=== PATIENT | female | born 1990 | race Caucasian/White ===

== ENCOUNTER 2018-09-30 10:25 | Inpatient (IN) ==
[2018-09-30] MEDS ORDERED: LACTATED RINGER'S 1,000 ML IV PRN ×3 (11:38→23:54)
[2018-09-30] MEDS ORDERED: OXYTOCIN 30 UNITS/500 ML BAG IV PRN ×2 (11:38→18:13)
[2018-09-30 12:11] LABS: Hematocrit (blood only) 34.1 % (37-47); Hemoglobin 11.6 g/dL (12.0-16.0); Mean Corpuscular Volume 81.6 fL (80-100); Platelet Count 263 K/uL (130-400); RDW Coefficient of Variation 14.1 % (11.5-14.5); RDW Standard Deviation 41.9 fL (36.4-46.3); Red Blood Count 4.18 M/uL (4.2-5.4); White Blood Count 10.09 K/uL (4.8-10.8)
--- NOTE | 2018-09-30 13:01 | Obstetrical Progress Note ---
Date of Service September 30, 2018 Subjective Admit Note 28 F P0000 at 40.6 weeks admitted for IOL for post-dates. GBS is negative. FHT Cat 1. Cervix 1-2/50/-3/vertex/soft/posterior/intact. Some irregular contractions on monitor that are mild to patient. Will give Cytotec 25 mcg vaginally. Physical Exam Vital Signs (Past 24 Hours): Last Vital Signs Temp 37.3 C 09/30/18 11:25 Pulse 108 H 09/30/18 10:50 Resp 20 09/30/18 11:25 BP 138/99 09/30/18 10:50
[2018-09-30] MEDS: miSOPROStol 25 MCG TAB PV SCH ×3 (13:24→22:00)
--- NOTE | 2018-09-30 13:33 | Obstetrical Progress Note ---
Date of Service September 30, 2018 Physical Exam Vital Signs (Past 24 Hours): Last Vital Signs Temp 37.3 C 09/30/18 11:25 Pulse 87 09/30/18 13:26 Resp 20 09/30/18 11:25 BP 132/87 09/30/18 13:26 Physical Exam: Cytotec 25 mcg placed vaginally. T Cat 1.
--- NOTE | 2018-09-30 18:16 | Obstetrical Progress Note ---
Date of Service September 30, 2018 Physical Exam Vital Signs (Past 24 Hours): Last Vital Signs Temp 36.5 C 09/30/18 14:55 Pulse 100 H 09/30/18 14:55 Resp 18 09/30/18 14:55 BP 119/66 09/30/18 14:55 Genitourinary: OB Exam Abdomen: + heart tones, + estimated weight (7.5 lbs.) and + irregular contractions Manual OB Exam: + cervical dilation 4 cm, + cervical effacement 60% and + station high OB Exam Monitor Tracing: + external FHT monitor used, + external uterine monitor used and + category I will start oxytocin to augment contractions
[2018-09-30] MEDS: LACTATED RINGER'S 1,000 ML IV SCH ×2 (18:57→21:00)
[2018-09-30] MEDS ORDERED: BUPIVACAINE 0.25% 30 ML VIAL ONE (20:08)
[2018-09-30] MEDS ORDERED: fentaNYL 2MCG/ML ROPIV 1.25MG/ML 100 ML BAG EPI ONE (20:09)
[2018-09-30] MEDS ORDERED: fentaNYL citrate 100 MCG/2 ML VIAL ONE (20:09)
[2018-09-30] MEDS ORDERED: ePHEDrine sulfate 50 MG/ML AMP ONE (20:09)
--- NOTE | 2018-09-30 22:33 | Obstetrical Progress Note ---
Date of Service September 30, 2018 Physical Exam Vital Signs (Past 24 Hours): Last Vital Signs Temp 37.2 C 09/30/18 18:53 Pulse 115 H 09/30/18 22:28 Resp 18 09/30/18 21:42 BP 136/73 09/30/18 22:28 Pulse Ox 98 09/30/18 22:26 Genitourinary: Manual OB Exam: + cervical dilation 9 cm, + cervical effacement 100%, + station -2 and + amniotic fluid meconium OB Exam Monitor Tracing: + external FHT monitor used, + category II and + variable decelerations AROM with meconium fluid
--- NOTE | 2018-09-30 23:48 | Anesthesiology Consultation ---
Date of Service September 30, 2018 Assessment & Plan (1) Encounter for pre-operative examination: Chart Review Chart Review: Acceptable Risk for Surgery and Patient NOT seen in Pre Admission Testing Consults Requested none ASA ASA2 Proposed Anesthesia Anesthesia Type: Labor Epidural History Height/Weight Height: 5 ft 2 in Weight: 81.193 kg Allergies Allergy/AdvReac Type Severity Reaction Status Date / Time No Known Allergies Allergy Verified 09/30/18 11:54 Medications Home Medications Medication Instructions Recorded Confirmed Last Taken docusate sodium [Colace] 100 mg PO DAILY 09/30/18 09/30/18 09/29/18 08:00 ferrous sulfate [iron] 325 mg PO DAILY 09/30/18 09/30/18 09/29/18 08:00 vit-iron fum-folic ac 1 tab PO DAILY 09/30/18 09/30/18 09/29/18 08:00 [ Vitamin] Active Medications Generic Name Dose Route Start Last Admin Trade Name Freq PRN Reason Stop Dose Admin Lactated Ringer's 1,000 mls @ 125 mls/hr 09/30/18 11:45 09/30/18 22:20 Lr IV 10/02/18 11:44 125 mls/hr .Q8H LUISANA Infusion Oxytocin 30 units in 500 mls @ 0 mls/hr 09/30/18 18:13 09/30/18 22:10 Pitocin IV 10/02/18 18:12 0 units/hr .Q0M PRN 0 mls/hr Labor Induction/Augmentation Titration Protocol 0 UNITS/HR Misoprostol 25 mcg 09/30/18 13:15 09/30/18 22:00 Cytotec PV 10/30/18 13:14 Not Given Q4H LUISANA Social History Smoking Status: Never smoker Hx Alcohol Use: No Hx Substance Use: No substance use type: does not use Physical Exam Vital Signs Last Vital Signs Temp 37.6 C H 09/30/18 23:04 Pulse 108 H 09/30/18 23:43 Resp 20 09/30/18 23:04 BP 141/85 H 09/30/18 23:43 Pulse Ox 100 09/30/18 23:41 Testing Laboratory Results 09/30/18 11:59
[2018-09-30] MEDS ORDERED: DiphenhydrAMINE HCL 50 MG/ML VIAL IV PRN (23:54)
[2018-09-30] MEDS ORDERED: fentaNYL 2MCG/ML ROPIV 1.25MG/ML 100 ML BAG EPI PRN (23:54)
[2018-09-30] MEDS ORDERED: ePHEDrine sulfate 50 MG/ML AMP IV PRN (23:54)
[2018-09-30] MEDS ORDERED: NALOXONE HCL 1 MG in SODIUM CHLORIDE 0.9% 1000ML 1,000 ML IV PRN (23:54)
[2018-09-30] MEDS ORDERED: ONDANSETRON INJ 2 MG/ML 2 ML VIAL IV PRN (23:54)
[2018-09-30] MEDS ORDERED: NALBUPHINE HCL INJ 10 MG/ML AMP IV PRN (23:54)
[2018-09-30] MEDS ORDERED: NALOXONE HCL 0.4 MG/1 ML VIAL/CARP IV PRN (23:54)
[2018-10-01] MEDS: LACTATED RINGER'S 1,000 ML IV SCH (00:11)
[2018-10-01] MEDS ORDERED: BISACODYL 10 MG SUPP PR PRN (02:37)
[2018-10-01] MEDS ORDERED: DIPHTHERIA/TETANUS/PERTUSSIS 0.5 ML SYR/VIAL IM ONE (02:37)
[2018-10-01] MEDS ORDERED: SUPERCREAM 0.870% 15 GM JAR EXT PRN (02:37)
[2018-10-01] MEDS ORDERED: OXYTOCIN 30 UNITS/500 ML BAG IV PRN (02:37)
[2018-10-01] MEDS ORDERED: ACETAMINOPHEN 325 MG TAB PO PRN (02:37)
[2018-10-01] MEDS ORDERED: HYDROCORTISONE ACETATE 25 MG SUPP PR PRN (02:37)
[2018-10-01] MEDS ORDERED: BENZOCAINE 20% AER SPR 82.5 GM CAN EXT PRN (02:37)
--- NOTE | 2018-10-01 02:49 | Procedure Note ---
Vaginal Delivery Summary Date of Service October 01, 2018 Supervising Physician Co-Signing Physician Notes Delivery Note live female over intact perineum TAYLOR with nuchal cord x1 reduced at time of delivery. Baby born with meconium and brought over to nurse for warming and suctioning. Apgars 8/9 weight pending. Cord blood obtained and cord for blood gasses obtained. Placenta delivered spontaneously and intact. No tears. EBL 200 ml. Final sponge and instrument count are correct. Mom and baby stable.
[2018-10-01 03:02] LABS: Base Excess Cord Arterial Bld -9.2 mEq/L (-9-1.8); CO2 Cord Arterial Blood 54 mmHg (39.1-73.5); HCO3 Cord Arterial Blood 20 mmol/L (19.7-28.5); pH Cord Arterial Blood 7.18 (7.1-7.38)
[2018-10-01 03:08] LABS: Base Excess Cord Venous Blood -8.3 mEq/L (-7.7-1.9); Cord Venous Blood HCO3 20 mmol/L (18.4-26.8); Cord Venous Blood PCO2 49 mmHg (30.4-57.2); Cord Venous Blood PO2 22 mmHg (14.1-43.3); Cord Venous Blood pH 7.22 (7.20-7.44)
[2018-10-01 03:09] LABS: O2 Saturation Cord Venous Bld < 68.0 % (<68)
--- NOTE | 2018-10-01 03:29 | Anesthesia Procedure Note ---
Date of Service October 01, 2018 Anesthesia Post Epidural Note Vital Signs Vital Signs: Temp Pulse Resp BP Pulse Ox 37.0 C 112 H 20 117/61 97 10/01/18 02:42 10/01/18 03:12 10/01/18 03:12 10/01/18 03:12 10/01/18 02:42 Pain Intensity Bilateral Abdomen: Pain Intensity: 0 Notes Mental Status: alert / awake / arousable Patient Amnestic to Procedure: Yes Nausea / Vomiting: adequately controlled Pain: adequately controlled Airway Patency, RR, SpO2: stable & adequate BP & HR: stable & adequate Hydration State: stable & adequate Neuraxial Anesthesia: sensory block is resolving Anesthetic Complications: no major complications apparent and Pt Satisfied with anesthetic care Epidural: Removed without complications and With tip intact
[2018-10-01] MEDS: IBUPROFEN 600 MG TAB PO PRN ×4 (06:37→19:54)
[2018-10-01] MEDS: DOCUSATE SODIUM 100 MG CAP PO SCH ×2 (08:17→19:54)
[2018-10-01] MEDS: PRENATAL VITAMIN 1 TAB PO SCH (08:17)
[2018-10-01] MEDS: FERROUS SULFATE 325 MG TAB PO SCH (08:17)
[2018-10-01] MEDS ORDERED: DOCUSATE SODIUM 100 MG CAP PO SCH (09:00)
[2018-10-01] MEDS ORDERED: NON-FORMULARY MEDICATION (Prenatal Vit-Iron Fum-Folic Ac [Prenatal Vitamin] 1 TAB) PO SCH (09:00)
[2018-10-01] MEDS ORDERED: NON-FORMULARY MEDICATION (Ferrous Sulfate [Iron] 325 MG) PO SCH (09:00)
[2018-10-02] MEDS: IBUPROFEN 600 MG TAB PO PRN ×3 (00:55→15:23)
[2018-10-02 07:43] LABS: Hemoglobin 9.2 g/dL (12.0-16.0); Mean Corpuscular Hgb Conc 32.9 g/dL (32-36); Mean Corpuscular Volume 81.6 fL (80-100); Mean Platelet Volume 9.4 fL (7.4-10.4); Platelet Count 213 K/uL (130-400); RDW Coefficient of Variation 14.6 % (11.5-14.5); RDW Standard Deviation 43.2 fL (36.4-46.3); Red Blood Count 3.43 M/uL (4.2-5.4); White Blood Count 9.93 K/uL (4.8-10.8)
[2018-10-02] MEDS: DOCUSATE SODIUM 100 MG CAP PO SCH ×2 (09:11→20:20)
[2018-10-02] MEDS: FERROUS SULFATE 325 MG TAB PO SCH (09:11)
[2018-10-02] MEDS: PRENATAL VITAMIN 1 TAB PO SCH (09:11)
--- NOTE | 2018-10-02 10:29 | Obstetrical Progress Note ---
Date of Service October 02, 2018 Subjective Patient is seen and examined. She feels well, no complaints. Ambulating without dizziness Voiding without difficulty Tolerating regular diet with out N&V Bleeding is minimal No fever/ chills/ CP/ SOB/ N&V/ Leg pain Breast feeding without problems Vital Signs Temp Pulse Resp BP Pulse Ox 10/02/18 00:40 36.5 C 84 16 111/70 10/01/18 19:55 36.5 C 95 H 18 103/68 99 10/01/18 16:30 36.7 C 92 H 18 120/77 98 10/01/18 11:15 36.7 C 95 H 16 116/77 98 10/02/18 Range/Units 07:20 WBC 9.93 (4.8-10.8) K/uL RBC 3.43 L (4.2-5.4) M/uL Hgb 9.2 L (12.0-16.0) g/dL Hct 28.0 L (37-47) % MCV 81.6 (80-100) fL MCH 26.8 (25-34) pg MCHC 32.9 (32-36) g/dL RDW Std Deviation 43.2 (36.4-46.3) fL RDW Coeff of Yarely 14.6 H (11.5-14.5) % Plt Count 213 (130-400) K/uL MPV 9.4 (7.4-10.4) fL PE: General: Alert, orientedx3, NAD Abd: soft, NT, fundus firm, below Umbilicus Perineum intact, Lochia rubra minimal Ext; NT, no edema AP: 28 yo s/p , ppd# 1 VSS Afebrile doing well Continue routine care All questions were answered D/C home tomorrow Physical Exam Vital Signs (Past 24 Hours): Last Vital Signs Temp 36.5 C 10/02/18 00:40 Pulse 84 10/02/18 00:40 Resp 16 10/02/18 00:40 BP 111/70 10/02/18 00:40 Pulse Ox 99 10/01/18 19:55
[2018-10-02 13:24] VITALS: O2SAT 98
[2018-10-02] MEDS: BISACODYL 5 MG TABEC PO SCH ×2 (20:20→20:22)
[2018-10-03] MEDS: IBUPROFEN 600 MG TAB PO PRN (02:20)
[2018-10-03 07:14] LABS: Hematocrit (blood only) 28.5 % (37-47); Hemoglobin 9.3 g/dL (12.0-16.0)
[2018-10-03] MEDS: DOCUSATE SODIUM 100 MG CAP PO SCH (08:11)
[2018-10-03] MEDS: PRENATAL VITAMIN 1 TAB PO SCH (08:11)
[2018-10-03] MEDS: FERROUS SULFATE 325 MG TAB PO SCH (08:11)
[2018-10-03 09:28] VITALS: BP 125/79; PULSE 98; TEMP 97.9
--- NOTE | 2018-10-03 10:07 | Obstetrical Progress Note ---
Date of Service October 03, 2018 Subjective doing well passing gas +BM Physical Exam Vital Signs (Past 24 Hours): Last Vital Signs Temp 36.6 C 10/03/18 08:08 Pulse 98 H 10/03/18 08:08 Resp 18 10/03/18 08:08 BP 125/79 10/03/18 08:08 Pulse Ox 98 10/03/18 08:08 Constitutional: WD/WN, vitals as above comfortable Abdomen soft non-tender fundus firm Neg edema neg [facility] for discharge
== END 2018-10-03 15:47 | disposition home or self-care (01) | DRG 807 ==
LOC: 4S1 10:25 → 4S2 10-01 05:19

== ENCOUNTER 2022-04-28 19:30 | Inpatient (IN) ==
[2022-04-28] MEDS ORDERED: LIDOCAINE 1% LOCAL 20 ML VIAL INFIL PRN (20:09)
[2022-04-28] MEDS ORDERED: OXYTOCIN 30 UNITS/500 ML BAG IV PRN ×2 (20:09→23:53)
[2022-04-28] MEDS ORDERED: LACTATED RINGER'S 1,000 ML IV PRN (20:09)
[2022-04-28 20:36] LABS: Hemoglobin 12.3 g/dl (12.0-16.0); Mean Corpuscular Hemoglobin 27.6 pg (25.0-34.0); Mean Corpuscular Hgb Conc 34.2 g/dL (32.0-36.0); Mean Corpuscular Volume 80.7 fL (80.0-100.0); Mean Platelet Volume 9.1 fL (9.4-12.3); Platelet Count 273 K/uL (130-400); RDW Coefficient of Variation 14.6 % (11.5-14.5); RDW Standard Deviation 42.4 fL (36.4-46.3); Red Blood Count 4.46 M/uL (3.93-5.22); White Blood Count 12.58 K/ul (4.8-10.8)
--- NOTE | 2022-04-28 20:42 | History & Physical Report ---
Date of Service April 28, 2022 Assessment & Plan (1) : Plan Admit Anticipate normal delivery Admission and Anticipated Discharge Date Admission Date: April 28, 2022 History of Present Illness Chief Complaint: onset of labor Primary Care Provider: Ly Brizuela MD 31 F P1001 at 40 weeks presents in active labor. GBS is negative. Covid home test was positive and pending PCR. Allergies Allergy/AdvReac Type Severity Reaction Status Date / Time No Known Allergies Allergy Verified 09/30/18 11:54 Home Medications Medication Instructions Recorded Confirmed Type docusate sodium 100 mg capsule 100 mg PO DAILY 09/30/18 09/30/18 History (Colace) ferrous sulfate 325 mg (65 mg 325 mg PO DAILY 09/30/18 09/30/18 History iron) tablet (iron) vitamins-iron fumarate 27 1 tab PO DAILY 09/30/18 09/30/18 History mg iron-folic acid 0.8 mg tablet ( Vitamin) ibuprofen 600 mg tablet 600 mg PO Q6H PRN pain #30 tabs 10/03/18 Rx epinephrine 0.3 mg/0.3 mL 0.3 mg (0.3 mL) IM ONCE PRN 07/25/21 Rx injection, auto-injector (EpiPen allergic reaction #1 ea 2-[place]) Patient History Medical History No chronic diseases present Surgical History No significant past surgical history Social History Smoking Status: Never smoker Hx Alcohol Use: No Hx Substance Use: No Preferred Language: Salvadorean Beliefs That Will Affect Care: None marital status: marital status details: Teddy Current Living Situation: Spouse current occupational status: employed current occupation: [employer] Other Information That Helps Us Care for You: No Feels Safe at Home: Yes Safety Concerns: Feels Safe At This Time Childhood Exposure to Second-Hand Smoke: No Gender Identity: Female Assistive Devices: None OB History x1 Review of Systems All systems reviewed & are unremarkable except as noted in HPI & below Physical Exam Constitutional: WD/WN, vitals as above Eyes: PERRL, conjunctivae normal, anicteric sclerae Neck: trachea midline, no thyromegaly Respiratory: normal respiratory effort, lungs clear to auscultation Cardiovascular: RRR, no murmur, no edema Musculoskeletal: Extremities: extremities normal to inspection Skin: no rashes, warm and dry Neurologic: patellar DTR's 2+ bilat, sensation intact Psychiatric: A+Ox3, euthymic affect Genitourinary: normal external appearance OB Exam Abdomen: + fundal height, + heart tones and + vertex Manual OB Exam: + cervical dilation OB Exam Monitor Tracing: + external FHT monitor used, + external uterine monitor used, + category I and + normal FHT variability Results & Data ([place]) Vital Signs (Past 12 Hours) Vital Signs Pulse BP 04/28/22 19:45 108 H 133/84 Monitoring External Monitor Cat 1
[2022-04-28] MEDS ORDERED: ePHEDrine sulfate 50 MG/ML AMP ONE (20:49)
[2022-04-28] MEDS ORDERED: fentaNYL citrate 100 MCG/2 ML VIAL ONE (20:49)
[2022-04-28] MEDS ORDERED: BUPIVACAINE 0.25% 30 ML VIAL ONE (20:49)
[2022-04-28] MEDS ORDERED: SODIUM CHLORIDE 0.9% INJ 10 ML VIAL ONE (20:49)
[2022-04-28] MEDS ORDERED: fentaNYL 2MCG/ML ROPIVACAINE 1.25MG/ML 100 ML BAG EPI ONE (20:50)
[2022-04-28] MEDS ORDERED: LIDOCAINE 2%/EPINEPHRINE 1:200,000 20 ML SDV ONE (20:50)
--- NOTE | 2022-04-28 20:53 | Anesthesiology Consultation ---
Date of Service April 28, 2022 Assessment & Plan Chart Review Chart Review: Acceptable Risk for Labor Epidural Consults Requested none History Height/Weight Height: 5 ft 2 in Weight: 89.811 kg Allergies Allergy/AdvReac Type Severity Reaction Status Date / Time No Known Allergies Allergy Verified 09/30/18 11:54 Medications Home Medications Medication Instructions Recorded Confirmed Last Taken docusate sodium 100 mg capsule 100 mg PO DAILY 09/30/18 09/30/18 09/29/18 08:00 (Colace) ferrous sulfate 325 mg (65 mg 325 mg PO DAILY 09/30/18 09/30/18 09/29/18 08:00 iron) tablet (iron) vitamins-iron fumarate 27 1 tab PO DAILY 09/30/18 09/30/18 09/29/18 08:00 mg iron-folic acid 0.8 mg tablet ( Vitamin) ibuprofen 600 mg tablet 600 mg PO Q6H PRN pain #30 tabs 10/03/18 Unknown epinephrine 0.3 mg/0.3 mL 0.3 mg (0.3 mL) IM ONCE PRN 07/25/21 Unknown injection, auto-injector (EpiPen allergic reaction #1 ea 2-[place]) Past Medical History Medical History No chronic diseases present Past Surgical History Surgical History No significant past surgical history Social History Smoking Status: Never smoker Hx Alcohol Use: No Hx Substance Use: No substance use type: does not use Physical Exam Vital Signs Last Vital Signs Pulse 108 H 04/28/22 19:45 BP 133/84 04/28/22 19:45 Testing Laboratory Results 04/28/22 20:28
[2022-04-28] MEDS ORDERED: NALOXONE HCL 0.4 MG/1 ML VIAL/CARP IV PRN (20:54)
[2022-04-28] MEDS ORDERED: fentaNYL 2MCG/ML ROPIVACAINE 1.25MG/ML 100 ML BAG EPI PRN (20:54)
[2022-04-28] MEDS ORDERED: diphenhydrAMINE 50 MG/ML VIAL IV PRN (20:54)
[2022-04-28] MEDS ORDERED: ePHEDrine sulfate 50 MG/ML AMP IV PRN (20:54)
[2022-04-28] MEDS ORDERED: NALBUPHINE HCL INJ 10 MG/ML AMP IV PRN (20:54)
[2022-04-28] MEDS ORDERED: NALOXONE HCL 1 MG in SODIUM CHLORIDE 0.9% 1000ML 1,000 ML IV PRN (20:54)
[2022-04-28] MEDS ORDERED: bisacodyL 10 MG SUPP PR PRN (23:53)
[2022-04-28] MEDS ORDERED: EPINEPHrine ADULT AUTO-INJECT 0.3 MG SYR IM PRN (23:53)
[2022-04-28] MEDS ORDERED: BENZOCAINE 20% AER SPR 82.5 GM CAN EXT PRN (23:53)
[2022-04-28] MEDS ORDERED: DIPHTHERIA/TETANUS/PERTUSSIS 0.5 ML SYR/VIAL IM ONE (23:53)
[2022-04-28] MEDS ORDERED: ACETAMINOPHEN 325 MG TAB PO PRN (23:53)
[2022-04-28] MEDS ORDERED: HYDROCORTISONE ACETATE 25 MG SUPP PR PRN (23:53)
--- NOTE | 2022-04-28 23:56 | Delivery Summary ---
Vaginal Delivery Summary Date of Service April 28, 2022 Vaginal Delivery Summary Delivery Note live male TAYLOR over intact perineum with delayed cord clamping and Apgars 8/0 weight pending. Cord blood obtained followed by spontaneous delivery of intact placenta. No tears. Final sponge and instrument count are correct. EBL 100 ml. Mom and baby stable.
[2022-04-29] MEDS: IBUPROFEN 600 MG TAB PO PRN ×5 (04:17→20:16)
[2022-04-29 06:50] LABS: Hematocrit (blood only) 31.7 % (34.1-44.9); Hemoglobin 10.9 g/dl (12.0-16.0); Mean Corpuscular Hemoglobin 27.8 pg (25.0-34.0); Mean Corpuscular Hgb Conc 34.4 g/dL (32.0-36.0); Mean Corpuscular Volume 80.9 fL (80.0-100.0); Mean Platelet Volume 9.2 fL (9.4-12.3); Platelet Count 245 K/uL (130-400); RDW Coefficient of Variation 14.9 % (11.5-14.5); RDW Standard Deviation 43.6 fL (36.4-46.3); Red Blood Count 3.92 M/uL (3.93-5.22); White Blood Count 12.22 K/ul (4.8-10.8)
[2022-04-29] MEDS: DOCUSATE SODIUM 100 MG CAP PO SCH ×2 (08:18→20:16)
[2022-04-29] MEDS: PRENATAL VITAMIN 1 TAB PO SCH (08:18)
--- NOTE | 2022-04-29 08:43 | Obstetrical Progress Note ---
Date of Service April 29, 2022 Assessment & Plan Admission and Anticipated Discharge Date Admission Date: April 28, 2022 Subjective Patient is seen and examined. She feels well, no complaints. Ambulating without dizziness Voiding without difficulty Tolerating regular diet with out N&V Bleeding is minimal No fever/ chills/ CP/ SOB/ N&V/ Leg pain Breast feeding without problems Vital Signs Height Weight Body Mass Index Blood Pressure Blood Pressure Position Temperature Temperature Source 5 ft 2 in 89.811 kg 36.2 99/61 L Semi-fowlers 36.4 C L Oral 04/28/22 20:54 04/28/22 20:54 04/28/22 20:37 04/29/22 07:51 04/29/22 07:51 04/29/22 07:51 04/29/22 07:51 Pulse Rate Respiratory Rate Pulse Oximetry 101 H 16 98 04/29/22 07:51 04/29/22 07:51 04/28/22 23:37 Lab Results 04/28/22 04/28/22 04/28/22 Range/Units 20:12 20:28 20:28 WBC 12.58 H (4.8-10.8) K/ul RBC 4.46 (3.93-5.22) M/uL Hgb 12.3 (12.0-16.0) g/dl Hct 36.0 (34.1-44.9) % MCV 80.7 (80.0-100.0) fL MCH 27.6 (25.0-34.0) pg MCHC 34.2 (32.0-36.0) g/dL RDW Std Deviation 42.4 (36.4-46.3) fL RDW Coeff of Yarely 14.6 H (11.5-14.5) % Plt Count 273 (130-400) K/uL MPV 9.1 L (9.4-12.3) fL SARS-CoV-2, RNA, NAAT NEGATIVE (NEGATIVE) Blood Type AB Positive Antibody Screen NEGATIVE 04/29/22 Range/Units 06:26 WBC 12.22 H (4.8-10.8) K/ul RBC 3.92 L (3.93-5.22) M/uL Hgb 10.9 L (12.0-16.0) g/dl Hct 31.7 L (34.1-44.9) % MCV 80.9 (80.0-100.0) fL MCH 27.8 (25.0-34.0) pg MCHC 34.4 (32.0-36.0) g/dL RDW Std Deviation 43.6 (36.4-46.3) fL RDW Coeff of Yarely 14.9 H (11.5-14.5) % Plt Count 245 (130-400) K/uL MPV 9.2 L (9.4-12.3) fL SARS-CoV-2, RNA, NAAT (NEGATIVE) Blood Type Antibody Screen PE: General: Alert, orientedx3, NAD Abd: soft, NT, fundus firm, below Umbilicus Perineum intact, Lochia rubra minimal Ext; NT, no edema AP: 31 yo s/p , ppd# 1 VSS Afebrile doing well Continue routine care All questions were answered D/C home tomorrow Results & Data ([facility]) Vital Signs (Past 12 Hours) Vital Signs Temp Pulse Pulse Resp BP BP Pulse Ox 04/29/22 07:51 36.4 C L 101 H 16 99/61 L 04/29/22 05:52 36.8 C 103 H 18 95/49 L 04/29/22 02:00 37.1 C 105 H 18 104/58 L 04/29/22 02:00 37.1 C 18 04/29/22 01:20 18 04/29/22 00:50 18 04/29/22 00:35 18 04/29/22 00:20 18 04/29/22 00:05 18 04/28/22 23:50 37.1 C 18 04/29/22 01:50 105 H 104/58 L 04/29/22 01:35 101 H 114/60 04/29/22 01:20 93 H 116/61 04/29/22 01:05 99 H 105/55 L 04/29/22 00:50 95 H 108/59 L 04/29/22 00:35 100 H 120/63 04/29/22 00:20 98 H 130/67 04/29/22 00:06 108 H 123/60 04/28/22 23:50 107 H 177/84 H 04/28/22 23:37 118 H 98 10/18/22 23:32 110 H 98 1822 23:27 102 H 98 18/22 23:22 115 H 99 1822 23:21 98 H 167/90 H 22 23:17 106 H 98 1822 23:12 96 H 96 22 23:07 93 H 148/88 H 97 22 23:00 18 22 23:00 36.8 C 18 22 23:02 92 H 98 22 22:57 106 H 97 22 22:52 96 22 22:52 100 H 22 22:52 96 H 124/58 L 22 22:47 96 H 96 22 22:42 102 H 96 22 22:30 18 22 22:30 18 22 22:37 102 H 96 22 22:35 96 H 110/55 L 04/28/22 22:32 103 H 95 22 22:27 97 H 96 22 22:22 110 H 96 04/28/22 22:21 103 H 118/59 L 22 22:17 99 H 96 22 22:12 97 H 96 22 22:00 18 22 22:00 18 04/28/22 22:07 94 H 98 22 22:06 98 H 113/59 L 04/28/22 22:02 92 H 98 22 21:57 106 H 97 22 21:52 102 H 97 1822 21:50 107 H 147/78 H 18/22 21:47 102 H 98 18/22 21:42 106 H 98 18/22 21:30 18 1822 21:30 18 1822 21:37 105 H 98 18/22 21:35 100 H 143/77 H 18/22 21:33 103 H 139/73 1018/22 21:32 105 H 98 18/22 21:31 105 H 141/76 H 18/22 21:29 100 H 142/75 H 10/18/22 21:27 98 04/28/22 21:27 101 H 04/28/22 21:05 20 04/28/22 21:05 20 04/28/22 21:27 99 H 141/76 H 04/28/22 21:25 106 H 138/79 04/28/22 21:22 109 H 98 04/28/22 21:23 110 H 145/90 H 04/28/22 21:21 108 H 161/99 H 04/28/22 21:19 111 H 151/70 H 04/28/22 21:17 114 H 98 04/28/22 21:15 123 H 172/100 H 04/28/22 21:13 109 H 133/73 04/28/22 21:12 108 H 98 04/28/22 21:11 108 H 132/71 04/28/22 21:09 101 H 131/79 04/28/22 21:07 96 04/28/22 21:07 103 H 04/28/22 21:07 100 H 162/74 H 04/28/22 21:06 98 H 173/100 H 04/28/22 21:02 94 H 97 04/28/22 20:57 101 H 98 O2 Del Method 04/29/22 07:51 Room Air 04/29/22 05:52 Room Air 04/29/22 02:00 Room Air 04/29/22 02:00 04/29/22 01:20 04/29/22 00:50 04/29/22 00:35 04/29/22 00:20 04/29/22 00:05 04/28/22 23:50 04/29/22 01:50 04/29/22 01:35 04/29/22 01:20 04/29/22 01:05 04/29/22 00:50 04/29/22 00:35 04/29/22 00:20 04/29/22 00:06 04/28/22 23:50 04/28/22 23:37 04/28/22 23:32 04/28/22 23:27 04/28/22 23:22 04/28/22 23:21 04/28/22 23:17 04/28/22 23:12 04/28/22 23:07 04/28/22 23:00 04/28/22 23:00 04/28/22 23:02 04/28/22 22:57 04/28/22 22:52 04/28/22 22:52 04/28/22 22:52 04/28/22 22:47 04/28/22 22:42 04/28/22 22:30 04/28/22 22:30 04/28/22 22:37 04/28/22 22:35 04/28/22 22:32 04/28/22 22:27 04/28/22 22:22 04/28/22 22:21 04/28/22 22:17 04/28/22 22:12 04/28/22 22:00 04/28/22 22:00 04/28/22 22:07 04/28/22 22:06 04/28/22 22:02 04/28/22 21:57 04/28/22 21:52 04/28/22 21:50 04/28/22 21:47 04/28/22 21:42 04/28/22 21:30 04/28/22 21:30 04/28/22 21:37 04/28/22 21:35 04/28/22 21:33 04/28/22 21:32 04/28/22 21:31 04/28/22 21:29 04/28/22 21:27 04/28/22 21:27 04/28/22 21:05 04/28/22 21:05 04/28/22 21:27 04/28/22 21:25 04/28/22 21:22 04/28/22 21:23 04/28/22 21:21 04/28/22 21:19 04/28/22 21:17 04/28/22 21:15 04/28/22 21:13 04/28/22 21:12 04/28/22 21:11 04/28/22 21:09 04/28/22 21:07 04/28/22 21:07 04/28/22 21:07 04/28/22 21:06 04/28/22 21:02 04/28/22 20:57
[2022-04-29] MEDS ORDERED: NON-FORMULARY MEDICATION (Prenatal Vit-Iron Fum-Folic Ac [Prenatal Vitamin] 27 mg iron- 0. PO SCH (09:00)
[2022-04-29] MEDS ORDERED: DOCUSATE SODIUM 100 MG CAP PO SCH (09:00)
[2022-04-29] MEDS: CYANOCOBALAMIN (B-12) 500 MCG TABLET PO SCH (09:09)
[2022-04-29] MEDS: FERROUS SULFATE 325 MG TAB PO SCH (09:09)
--- NOTE | 2022-04-29 09:24 | Anesthesia Procedure Note ---
Date of Service April 29, 2022 Anesthesia Post Epidural Note Vital Signs Vital Signs: Temp Pulse Resp BP Pulse Ox O2 Del Method 36.4 C L 101 H 16 99/61 L 98 04/29/22 07:51 04/29/22 07:51 04/29/22 07:51 04/29/22 07:51 04/28/22 23:37 04/29/22 07:51 Notes Mental Status: alert / awake / arousable and participated in evaluation Nausea / Vomiting: adequately controlled Pain: adequately controlled Airway Patency, RR, SpO2: stable & adequate BP & HR: stable & adequate Hydration State: stable & adequate Neuraxial Anesthesia: was administered and sensory block is resolving Anesthetic Complications: no major complications apparent and Pt Satisfied with anesthetic care Epidural: Removed without complications and With tip intact
[2022-04-29] MEDS ORDERED: bisacodyL 5 MG TABEC PO SCH (20:00)
[2022-04-30] MEDS: IBUPROFEN 600 MG TAB PO PRN ×3 (03:34→12:51)
[2022-04-30 07:42] LABS: Hemoglobin 10.4 g/dl (12.0-16.0)
[2022-04-30] MEDS: PRENATAL VITAMIN 1 TAB PO SCH (07:47)
[2022-04-30] MEDS: DOCUSATE SODIUM 100 MG CAP PO SCH (07:47)
[2022-04-30] MEDS: CYANOCOBALAMIN (B-12) 500 MCG TABLET PO SCH (07:47)
[2022-04-30] MEDS: FERROUS SULFATE 325 MG TAB PO SCH (07:48)
--- NOTE | 2022-04-30 10:03 | Obstetrical Progress Note ---
Date of Service April 30, 2022 Subjective Ambulation: ambulating normally Voiding: no voiding problems Passing Gas:: Yes Diet Tolerance:: regular diet Lochia:: Small Feeding Type:: breast feeding doing well plans for d/c today Physical Exam Constitutional WD/WN, vitals as above Gastrointestinal (Abdomen) Inspection/Auscultation: abdomen normal to inspection abdomen soft and non-tender fundus firm belwo U Musculoskeletal Extremities: extremities normal to inspection Skin no rashes, warm and dry Neurologic patellar DTR's 2+ bilat, sensation intact Results & Data ([facility]) Vital Signs (Past 12 Hours) Vital Signs Temp Pulse Resp BP Pulse Ox O2 Del Method 04/30/22 07:55 36.6 C 74 20 102/66 98 Room Air 04/29/22 23:35 36.7 C 98 H 20 100/66 97 Room Air Laboratory Results Laboratory Results - last 72 hr 04/28/22 04/28/22 04/28/22 20:12 20:28 20:28 WBC 12.58 H RBC 4.46 Hgb 12.3 Hct 36.0 MCV 80.7 MCH 27.6 MCHC 34.2 RDW Std Deviation 42.4 RDW Coeff of Yarely 14.6 H Plt Count 273 MPV 9.1 L SARS-CoV-2, RNA, NAAT NEGATIVE Blood Type AB Positive Antibody Screen NEGATIVE 04/29/22 04/30/22 06:26 07:30 WBC 12.22 H RBC 3.92 L Hgb 10.9 L 10.4 L Hct 31.7 L 31.0 L MCV 80.9 MCH 27.8 MCHC 34.4 RDW Std Deviation 43.6 RDW Coeff of Yarely 14.9 H Plt Count 245 MPV 9.2 L SARS-CoV-2, RNA, NAAT Blood Type Antibody Screen
== END 2022-04-30 14:35 | disposition home or self-care (01) | DRG 807 ==
LOC: OPB 19:30 → 4S1 19:32 → 4E2 04-29 02:29